=== PATIENT | female | born 1955 | race Caucasian/White ===

== ENCOUNTER 2017-03-30 11:02 | Emergency (ER) | payer BC ==
[2017-03-30 11:12] VITALS: RESP 18; O2SAT 96
--- NOTE | 2017-03-30 11:28 | CPEKG ---
Heart Rate: 122 RR Interval: 492 QRSD Interval: 84 QT Interval: 352 QTC Interval: 502 QRS [place]: -56 T Wave [place]: 67 EKG Severity - ABNORMAL ECG - EKG Impression: ATRIAL FIBRILLATION, V-RATE 84-126 EKG Impression: MULTIFORM VENTRICULAR PREMATURE COMPLEXES EKG Impression: LEFT ANTERIOR FASCICULAR BLOCK EKG Impression: PROBABLE ANTEROSEPTAL INFARCT, AGE INDETERM Electronically Signed By: Brandon Palacios 30-Mar-2017 14:23:37
--- NOTE | 2017-03-30 12:37 | EDPHY ---
H & P Stated Complaint: HEART PALPITATIONS, DIZZINESS, STATES HX OF AFIB Time Seen by Provider: 03/30/17 12:34 HPI/ROS: CHIEF COMPLAINT: Palpitations, history of atrial fibrillation HISTORY OF PRESENT ILLNESS: The patient presents the ED with palpitations which began earlier today. The patient has a history of atrial fibrillation. She is currently on no regular medications. She had been prescribed Eliquis which she has not taking yet. Her regular phonograph cartridge assembler is Dr. Buddy Romero from Cardiology. The patient has had no history of exertional chest pain. She did have dyspnea earlier today with her palpitations. The patient states that her symptoms have improved. The patient denies additional complaints. Her dyspnea was moderate earlier today. REVIEW OF SYSTEMS: A comprehensive 10 point review of systems is otherwise negative aside from elements mentioned in the history of present illness. Source: Patient Exam Limitations: No limitations - Personal History Current Tetanus/Diphtheria Vaccine: Yes Current Tetanus Diphtheria and Acellular Pertussis (TDAP): Yes - Medical/Surgical History Hx Asthma: No Hx Chronic Respiratory Disease: No Hx Diabetes: No Hx Cardiac Disease: Yes Hx Renal Disease: No Hx Cirrhosis: No Hx Alcoholism: No Hx HIV/AIDS: No Hx Splenectomy or Spleen Trauma: No Other PMH: HTN, A FIB. FIBROMYALGIA - Social History Smoking Status: Never smoked - Physical Exam Exam: General Appearance: Alert, no distress Eyes: Pupils equal and round no pallor or injection ENT, Mouth: Mucous membranes moist Respiratory: There are no retractions, lungs are clear to auscultation Cardiovascular: Regular rate and rhythm Gastrointestinal: Abdomen is soft and nontender, no masses, bowel sounds normal Neurological: A&O, normal motor function, normal sensory exam, normal cranial nerves Skin: Warm and dry, no rashes Musculoskeletal: Neck is supple nontender Extremities: symmetrical, full range of motion Constitutional: Initial Vital Signs Temperature (C) 37.0 C 03/30/17 11:07 Heart Rate 140 H 03/30/17 11:07 Respiratory Rate 18 03/30/17 11:07 Blood Pressure 166/129 H 03/30/17 11:07 O2 Sat (%) 96 03/30/17 11:07 O2 Delivery Mode Room Air Allergies/Adverse Reactions: penicillin G Allergy (Intermediate, Verified 03/30/17 11:12) Vomiting Sulfa (Sulfonamide Antibiotics) Allergy (Intermediate, Verified 03/30/17 11:12) Vomiting Medical Decision Making - Diagnostics EKG Interpretation: EKG: Complete interpretation has been separately recorded in the [facility] archive. Summary impression: Atrial fibrillation, rate 122, nonspecific ST T wave changes noted ED Course/Re-evaluation: The patient presents the ED with an episode of atrial fibrillation with rapid ventricular response. While in the emergency department, the patient's atrial fibrillation resolved without intervention. Her heart rate is current in the 70s in sinus. The patient's lab studies and troponin are within normal limits. Patient will follow up with her regular phonograph cartridge assembler to discuss whether Holter monitor is indicated. The patient has been encouraged to continue Eliquis as prescribed by Cardiology. She should return to the ED for any recurrent palpitations, chest pain, shortness of breath or other concerns. Differential Diagnosis: Differential diagnosis considered includes atrial fibrillation, ventricular tachycardia, acute coronary syndrome, myocardial infarction - Data Points Laboratory Results: Laboratory Results 03/30/17 12:35 03/30/17 12:35 03/30/17 03/30/17 12:35 12:35 WBC 6.50 10^3/uL 10^3/uL (3.80-9.50) RBC 5.19 10^6/uL 10^6/uL (4.18-5.33) Hgb 15.8 g/dL g/dL (12.6-16.3) Hct 44.9 % % (38.0-47.0) MCV 86.5 fL fL (81.5-99.8) MCH 30.4 pg pg (27.9-34.1) MCHC 35.2 g/dL g/dL (32.4-36.7) RDW 13.2 % % (11.5-15.2) Plt Count 233 10^3/uL 10^3/uL (150-400) MPV 9.6 fL fL (8.7-11.7) Neut % (Auto) 64.8 % % (39.3-74.2) Lymph % (Auto) 23.5 % % (15.0-45.0) [place] % (Auto) 8.2 % % (4.5-13.0) Eos % (Auto) 2.2 % % (0.6-7.6) Baso % (Auto) 0.5 % % (0.3-1.7) Nucleat RBC Rel Count 0.0 % % (0.0-0.2) Absolute Neuts (auto) 4.22 10^3/uL 10^3/uL (1.70-6.50) Absolute Lymphs (auto) 1.53 10^3/uL 10^3/uL (1.00-3.00) Absolute Monos (auto) 0.53 10^3/uL 10^3/uL (0.30-0.80) Absolute Eos (auto) 0.14 10^3/uL 10^3/uL (0.03-0.40) Absolute Basos (auto) 0.03 10^3/uL 10^3/uL (0.02-0.10) Absolute Nucleated RBC 0.00 10^3/uL 10^3/uL (0-0.01) Immature Gran % 0.8 % % (0.0-1.1) Immature Gran # 0.05 10^3/uL 10^3/uL (0.00-0.10) Sodium 142 mEq/L mEq/L (134-144) Potassium 4.0 mEq/L mEq/L (3.5-5.2) Chloride 103 mEq/L mEq/L (97-110) Carbon Dioxide 24 mEq/l mEq/l (22-31) Anion Gap 15 mEq/L mEq/L (8-16) BUN 17 mg/dL mg/dL (7-23) Creatinine 0.6 mg/dL mg/dL (0.6-1.0) Estimated GFR > 60 Glucose 103 mg/dL H mg/dL (70-100) Calcium 10.2 mg/dL mg/dL (8.5-10.4) Troponin I < 0.012 ng/mL ng/mL (0.000-0.034) Departure - Departure Disposition: Home, Routine, Self-Care Clinical Impression: Atrial fibrillation Condition: Good Instructions: A-fib (Atrial Fibrillation) (ED) Additional Instructions: 1. Please schedule a follow-up with Dr. Romero from cardiology. Please return to ED for any recurrent atrial fibrillation, chest pain or shortness of breath 2. I recommend taking Eliquis as recommended by your phonograph cartridge assembler. Referrals: Dillan Romero MD [Medical Doctor] - As per Instructions
[2017-03-30 12:44] LABS: PLATELET COUNT 233 10^3/uL (150-400)
[2017-03-30 13:50] VITALS: BP 164/88; PULSE 71; TEMP 98.2
== END 2017-03-30 13:50 | disposition home or self-care (01) ==
DX: I48.91 Unspecified atrial fibrillation (principal); I10 Essential (primary) hypertension